=== PATIENT | female | born 1950 | race Caucasian/White ===

== ENCOUNTER 2022-06-26 15:57 | Emergency (ER) | payer MEDICARE, OTHER ==
[~2022-06-26 15:57] MED LIST: Iopamidol 370 76% 100 ML VIAL ONE
[2022-06-26 16:59] LABS: #Eosinphils 0.1 10x3/uL (0.0-0.5); #Monocytes 0.6 10x3/uL (0.0-1.1); #Neutrophils 5.2 10x3/uL (1.5-8.4); %Basophils 0.4 % (0.0-2.0); %Eosinophils 1.4 % (0.0-6.0); %Lymphocytes 18.5 % (18.0-47.0); %Monocytes 8.6 % (0.0-10.0); %Neutrophils 70.8 % (40.0-75.0); Hemoglobin 13.3 g/dL (12.0-15.5); Mean Corpuscular HGB CONC 34.1 g/dL (32.0-36.0); Mean Corpuscular Hemoglobin 30.5 pg (27.0-33.0); Mean Corpuscular Volume 89.4 fl (81.6-98.3); Mean Platelet Volume 9.7 fl (7.4-10.4); Platelet Count 204 10x3/uL (150-450); RBC Distribution Width 12.9 % (11.5-14.5); Red Blood Cell (RBC) Count 4.36 10x6/uL (3.90-5.03); White Blood Cell (WBC) Count 7.4 10x3/uL (3.5-10.5)
[2022-06-26 17:14] LABS: ALT (SGPT) 21 U/L (8-55); AST (SGOT) 21 U/L (5-34); Alkaline Phosphatase 60 U/L (40-110); Anion Gap 14 mmol/L (10-20); BUN (Urea Nitrogen) 13 mg/dL (9.8-20.1); Bilirubin, Total 0.4 mg/dL (0.2-1.2); Calc. Creatinine Clearance 0 mL/min (70-130); Calcium 8.8 mg/dL (7.8-10.44); Carbon Dioxide 26 mmol/L (23-31); Chloride 99 mmol/L (98-107); Estimated GFR 73; Globulin 2.3 g/dL (2.4-3.5); Glucose 273 mg/dL (83-110); Potassium 3.7 mmol/L (3.5-5.1); Protein, Total 6.3 g/dL (5.8-8.1); Sodium 135 mmol/L (136-145)
[2022-06-26] MEDS ORDERED: Meclizine HCl 25 MG TAB ONE (17:30)
== END 2022-06-26 19:04 | disposition home or self-care (01) ==
LOC: CSHERS 15:57
DX: R42 Dizziness and giddiness (principal); I10 Essential (primary) hypertension; E03.9 Hypothyroidism, unspecified; E11.9 Type 2 diabetes mellitus without complications
CPT/HCPCS: 36415; 36416; 70450; 70496; 70498; 71045; 80053; 84484; 85025; 93005; Q9967

== ENCOUNTER 2023-07-18 09:32 | Outpatient (CLI) | payer MEDICARE, OTHER, BC | END 2023-07-18 09:33 | disposition home or self-care (01) | LOC: CSHMAMMO 09:32 | PROVIDERS: ATTEND Student in an Organized Health Care Education/Training Program | DX: Z12.31 Encounter for screening mammogram for malignant neoplasm of breast (principal); Z13.820 Encounter for screening for osteoporosis; Z78.0 Asymptomatic menopausal state; Z85.51 Personal history of malignant neoplasm of bladder | CPT/HCPCS: 77063; 77067; 77080 ==

== ENCOUNTER 2024-03-21 17:48 | Emergency (ER) | payer MEDICARE, OTHER | END 2024-03-21 19:36 | disposition home or self-care (01) | LOC: CSHERS 17:48 | DX: S60.222A Contusion of left hand, initial encounter (principal); I10 Essential (primary) hypertension; X58.XXXA Exposure to other specified factors, initial encounter ==